=== PATIENT | female | born 1990 | race Caucasian/White ===

== ENCOUNTER 2016-11-09 10:43 | Emergency (ER) | payer MEDICAID ==
[~2016-11-09] VITALS: Ht 167.6 cm; Wt 96.0 kg
[2016-11-09] MEDS ORDERED: SODIUM CHLORIDE 0.9% 1,000 ML IV ONE (14:36)
[2016-11-09] MEDS ORDERED: KETOROLAC 30MG/ML VIAL IV STA (14:36)
[2016-11-09] MEDS ORDERED: ONDANSETRON HCL 4MG/2ML VIAL IV STA (14:36)
[2016-11-09 15:10] LABS: CLARITY URINE CLEAR (CLEAR); COLOR URINE YELLOW (YELLOW); GLUCOSE URINE NEGATIVE (NEGATIVE); KETONES URINE NEGATIVE (NEGATIVE); LEUKOCYTE ESTERASE URINE NEGATIVE (NEGATIVE); NITRITE URINE NEGATIVE (NEGATIVE); OCCULT BLOOD URINE NEGATIVE (NEGATIVE); PH URINE 6.5 (4.5-8.0); PROTEIN URINE NEGATIVE (NEGATIVE); SPECIFIC GRAVITY URINE 1.018 (1.005-1.030); UROBILINOGEN URINE 0.2 E.U./dL (0.2-1.0)
[2016-11-09 15:34] LABS: BASOPHILS % 0.4 % (0.0-2.0); EOSINOPHILS % 2.8 % (0.0-5.0); HEMATOCRIT. 38.5 % (36.0-48.0); LYMPHOCYTES % 32.2 % (20.0-50.0); MEAN CORPUSCULAR HEMOGLOBIN 31.8 pg (28.0-32.0); MEAN CORPUSCULAR VOLUME 94.3 fL (81.0-99.0); MONOCYTES % 5.9 % (2.0-8.0); NEUTROPHILS % 58.7 % (40.0-76.0); PLATELET 320 x1000/uL (130-400); RED BLOOD CELL COUNT 4.08 mill/uL (4.2-5.4); RED CELL DISTRIBUTION WIDTH 12.8 % (11.6-14.6)
[2016-11-09 15:38] LABS: CHLORIDE 109 mEq/L (98-107)
[2016-11-09 15:46] LABS: CARBON DIOXIDE 29 mEq/L (21-32)
[2016-11-09 17:29] VITALS: BP 121/75
== END 2016-11-09 17:56 | disposition home or self-care (01) ==
LOC: ER 10:43
DX: R10.32 Left lower quadrant pain (principal); R11.2 Nausea with vomiting, unspecified
CPT/HCPCS: 36415; 74176; 76830; 76856; 80053; 81003; 81025; 83690; 85025; 96361; 96374; 96375; 99285; J1885; J2405; J7030; Z7610

== ENCOUNTER 2017-01-01 11:30 | Emergency (ER) | payer MEDICAID ==
[~2017-01-01] VITALS: Ht 170.2 cm; Wt 96.0 kg
[2017-01-01] MEDS ORDERED: KETOROLAC 30MG/ML VIAL IV STA (16:35)
[2017-01-01] MEDS ORDERED: ONDANSETRON HCL 4MG/2ML VIAL IV STA (16:35)
[2017-01-01 17:13] LABS: CHLORIDE 110 mEq/L (98-107)
[2017-01-01 17:14] LABS: BASOPHILS % 0.8 % (0.0-2.0); EOSINOPHILS % 2.2 % (0.0-5.0); HEMOGLOBIN. 13.9 g/dL (12.0-16.0); INR 1.1; LYMPHOCYTES % 32.3 % (20.0-50.0); MEAN CORPUSCULAR HEMOGLOBIN 32.5 pg (28.0-32.0); MEAN PLATELET VOLUME 7.7 fl (7.4-10.4); MONOCYTES % 4.2 % (2.0-8.0); NEUTROPHILS % 60.5 % (40.0-76.0); PLATELET 315 x1000/uL (130-400); RED BLOOD CELL COUNT 4.26 mill/uL (4.2-5.4); RED CELL DISTRIBUTION WIDTH 12.9 % (11.6-14.6)
[2017-01-01 17:22] LABS: CARBON DIOXIDE 24 mEq/L (21-32); HCG SCREEN NEGATIVE
[2017-01-01 18:16] VITALS: BP 110/70
== END 2017-01-01 19:10 | disposition home or self-care (01) ==
LOC: ER 13:45
DX: R11.2 Nausea with vomiting, unspecified (principal); R19.7 Diarrhea, unspecified; R79.1 Abnormal coagulation profile
CPT/HCPCS: 36415; 71010; 80053; 83690; 84703; 85025; 85610; 93005; 96374; 96375; 99285; J1885; J2405; Z7610